=== PATIENT | male | born 1935 | race Caucasian/White ===

== ENCOUNTER 2019-08-26 10:39 | Emergency (ER) | payer MEDICARE, OTHER ==
--- NOTE | 2019-08-26 11:59 | XRAY Report ---
Reason: left hand injury Procedure Date: 08/26/2019 Accession Number: [id number] / [id number] Procedure: XR - Hand 3 View LT CPT Code: Final Report FULL RESULT: EXAM: LEFT HAND RADIOGRAPHY EXAM DATE: 08/26/2019 11:28 AM. CLINICAL HISTORY: Left hand injury. COMPARISON: None. TECHNIQUE: 3 views. FINDINGS: Bones: Osteopenia is noted. Comminuted, minimally displaced fractures of the third distal phalangeal tuft noted. No fracture lines are seen in the second and fourth digits. Joints: Chronic appearing subluxation seen at the third and fourth DIP joints. 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 Moderate degenerative arthritis noted at multiple other MCP and interphalangeal joints. Soft Tissues: Soft tissue swelling seen at the distal aspect of the second through fourth digits. Soft tissue defect evident in the tip of the third digit. IMPRESSION: 1. Comminuted minimally displaced third distal phalangeal tuft fracture noted. 2. No other fracture lines are seen in the hand. 3. Soft tissue swelling seen at the distal aspect of the second through fourth digits. 4. Arthritis in the hand as described above. RADIA
[2019-08-26] MEDS ORDERED: ROPIVACAINE 0.5% PF 20 ML VIAL SUBQ STA (12:19)
[2019-08-26] MEDS ORDERED: BACITRACIN ZINC OINT 14 GM TOP STA (13:07)
[2019-08-26] MEDS ORDERED: TETANUS/DIPHTHERIA/PERTUSSIS 0.5 ML SYRINGE IM ONE (13:07)
[2019-08-26] MEDS ORDERED: cephALEXin 250 MG CAPSULE PO STA (13:08)
--- NOTE | 2019-08-26 13:10 | ED Physician Documentation ---
PD HPI UPPER EXT INJURY - Stated complaint Stated Complaint: LEFT HAND INJURT - Chief complaint Chief Complaint: Laceration - History obtained from History obtained from: Patient - History of Present Illness Location: Left, Hand Type of injury: Laceration Where injury occurred: Home Timing - onset: How many hours ago (1) Timing - duration: Hours (1) Timing - details: Abrupt onset Pain level now: 4 Improved by: Rest Worsened by: Moving, Palpating Associated symptoms: No: Weakness, Numbness, Tingling, Swelling Recently seen: Not recently seen - Additonal information Additional information: Patient is right-handed. He got his left hand caught in a table saw, causing lacerations to the distal aspects of the second, third and fourth digits. No numbness or tingling. No loss of function. Unknown last tetanus.No allergies to medications. Nothing makes it better or worse. Review of Systems Constitutional: denies: Fever, Chills GI: denies: Vomiting Neurologic: denies: Focal weakness, Numbness PD PAST MEDICAL HISTORY - Past Medical History Past Medical History: No - Past Surgical History Past Surgical History: No - Present Medications Home Medications: Ambulatory Orders Medication Instructions Recorded Confirmed Cephalexin [Keflex] 500 mg PO Q6H #40 capsule 08/26/19 - Living Situation Living Situation: reports: With spouse/s.o. - Social History Does the pt smoke?: No Does the pt have substance abuse?: No - Family History Family history: reports: Non contributory - Immunizations Immunizations are current?: No Immunizations: TDAP >10years/unknown PD ED PE NORMAL - Vitals Vital signs reviewed: Yes - General General: Alert and oriented X 3, No acute distress - HEENT HEENT: Moist mucous membranes - Neck Neck: Supple, no meningeal sign - Cardiac Cardiac: RRR - Respiratory Respiratory: No respiratory distress, Clear bilaterally - Derm Derm: Warm and dry - Extremities Extremities: Other (Left hand - Laceration to the distal aspect of the second, third and fourth digits. Of the second digit is approximately 1 cm, jagged and irregular. The third digit is approximately 1.5 cm, jagged, irregular and flapped. This is a deepest laceration. The fourth digit is superficial, approximately half centimeter.) - Neuro Neuro: Alert and oriented X 3, Other (All digits are neurovascularly intact with full range of motion. No tendon injuries.) - Psych Psych: Normal mood, Normal affect Results - Vitals Vitals: Vital Signs - 24 hr 08/26/19 11:03 Temperature 36.4 C L Heart Rate 55 L Respiratory 14 Rate Blood Pressure 149/89 H O2 Saturation 98 Oxygen O2 Source Room air - Rads (name of study) L hand xray Radiology: Prelim report reviewed, EMP read contemporaneously, See rad report (Comminuted minimally displaced third distal phalangeal tuft fracture noted. 2. No other fracture lines are seen in the hand. 3. Soft tissue swelling seen at the distal aspect of the second through fourth digits. 4. Arthritis in the hand as described above) Procedures - Laceration (location) Left second digit Length in cm: 1.5 Wound type: Stellate, Irregular, Clean Neurovascular status: Sensory intact, Motor intact, Vascular intact Tendon involvement: Tendon intact Anesthesia: OTH (Ropivacaine) Wound Preparation: Irrigated copiously NS, Wound explored, To the base Skin layer closure: Nylon, Size #-0 - enter number (4), Sutures - enter # (2) Other: Patient tolerated well, No complications, Neurovascular intact, Tetanus booster given (tdap) Complexity: Simple L 3rd digit Length in cm: 2 Wound type: Stellate, Irregular, Into muscle, Clean Neurovascular status: Sensory intact, Motor intact, Vascular intact Tendon involvement: Tendon intact Anesthesia: OTH (ropivicaine) Wound Preparation: Irrigated copiously NS, Wound explored, To the base Skin layer closure: Nylon, Interrupted, Size #-0 - enter number (4) Other: Patient tolerated well, No complications, Neurovascular intact, Tetanus booster given (tdap) Complexity: Simple L 4th digit Length in cm: 0.5 Wound type: Superficial Neurovascular status: Sensory intact, Motor intact, Vascular intact Tendon involvement: Tendon intact Anesthesia: OTH (ropivicaine) Wound Preparation: Irrigated copiously NS Skin layer closure: Dermabond Other: Patient tolerated well, No complications, Neurovascular intact, Tetanus booster given (tdap) Complexity: Simple PD MEDICAL DECISION MAKING - ED course Complexity details: reviewed results, re-evaluated patient, considered differential, d/w patient ED course: 84-year-old male with lacerations to the left hand from a table saw. Started on Keflex. Tdap given. Lacerations repaired. We will have him follow-up with his doctor for repeat evaluation. Patient is well-appearing, nontoxic. Afebrile. Will place on antibiotics for home as well. Patient counseled regarding signs and symptoms for which I believe and urgent re-evaluation would be necessary. Patient with good understanding of and agreement to plan and is comfortable going home at this time This document was made in part using voice recognition software. While efforts are made to proofread this document, sound alike and grammatical errors may occur. Departure - Departure Disposition: 01 Home, Self Care Clinical Impression: Open fracture of distal phalanx of digit of left hand Finger laceration Qualifiers: Encounter type: initial encounter Finger: unspecified finger Damage to nail status: without damage Foreign body presence: without foreign body Laterality: left Qualified Code(s): S61.219A - Laceration without foreign body of unspecified finger without damage to nail, initial encounter Condition: Good Instructions: ED Fx Finger Open, ED Laceration Hand Follow-Up: Ayaan Cantu MD [Primary Care Provider] - Within 1 week Prescriptions: Cephalexin [Keflex] 500 mg PO Q6H #40 capsule Comments: Take all antibiotics until gone. Return if you worsen. Return especially for redness, swelling or drainage from the wound. Follow-up with your doctor in 1 week for a wound check. Follow-up in approximately 10 to 14 days for suture removal.
[2019-08-26] MEDS ORDERED: BACITRACIN ZINC OINT 14 GM TOP ONE (13:18)
[2019-08-26 13:47] VITALS: BP 142/72
== END 2019-08-26 14:00 | disposition home or self-care (01) ==
LOC: ED 10:39
DX: S62.633B Displaced fracture of distal phalanx of left middle finger, initial encounter for open fracture (principal); S61.211A Laceration without foreign body of left index finger without damage to nail, initial encounter; S61.215A Laceration without foreign body of left ring finger without damage to nail, initial encounter; W31.2XXA Contact with powered woodworking and forming machines, initial encounter; Y93.89 Activity, other specified; Y92.009 Unspecified place in unspecified non-institutional (private) residence as the place of occurrence of the external cause; Z23 Encounter for immunization
CPT/HCPCS: 12002; 73130; 90471; 90715; 99283; 99284; A9270; J2795